=== PATIENT | female | born 1975 | race Caucasian/White ===

== ENCOUNTER 2024-03-27 06:51 | Day surgery (SDC) | payer OTHER ==
[2024-03-27] VITALS (243 sets, daily range): BP systolic 88–164; BP diastolic 45–101
[~2024-03-27] VITALS: Ht 175.3 cm; Wt 59.0 kg
[2024-03-27] MEDS ORDERED: diazePAM 5 MG/TAB PO PRN ×2 (07:30→08:30)
[2024-03-27] MEDS ORDERED: cloNIDine HCL 0.1 MG/TAB PO PRN (07:30)
[2024-03-27] MEDS ORDERED: ALBUTEROL SULFATE 2.5 MG VIAL IN PRN (07:30)
[2024-03-27] MEDS ORDERED: SCOPOLAMINE 1.5 MG DIS TD PRN (07:30)
[2024-03-27] MEDS ORDERED: PANTOPRAZOLE SODIUM Sesquihydr 40 MG/TAB PO PRN (07:30)
[2024-03-27] MEDS ORDERED: FAMOTIDINE 20 MG/TAB PO PRN (07:30)
[2024-03-27] MEDS ORDERED: LACTATED RINGER'S 1,000 ML IV PRN ×3 (07:30→19:00)
[2024-03-27] MEDS ORDERED: CYANOCOBALAMIN 500 MCG/TAB ( B12) PO PRN (07:30)
[2024-03-27] MEDS ORDERED: ASCORBIC ACID 4,000 MG in SODIUM CHLORIDE 0.9% 1,000 ML IV SCH (08:00)
[2024-03-27 08:18] LABS: BASO% 0.4 % (0-3); EOS% 9.8 % (0-8); HEMOGLOBIN 11.9 g/dl (12.0-16.0); LYMPH% 36.7 % (15-41); MEAN CELL VOLUME 93.9 fL CALC (80.0-100.0); MEAN CORPUSCULAR HGB 30.2 pG CALC (26.0-32.0); MEAN CORPUSCULAR HGB CONC 32.2 g/dL CAL (32.0-36.0); MONO% 9.2 % (2-13); NEUT# 3.01 thou/uL (2.00-7.15); NEUT% 43.9 % (42-76); RED BLOOD COUNT 3.94 mill/uL (4.20-5.60); RED CELL DISTRI WIDTH 12.4 % (11.5-15.5)
[2024-03-27 08:34] LABS: BILIRUBIN, TOTAL 0.3 mg/dL (0.02-1.3); CREATININE 0.7 mg/dL (0.5-1.0); POTASSIUM 4.6 mmol/l (3.5-5.1); TOTAL PROTEIN 6.6 g/dL (6.3-8.2)
[2024-03-27] MEDS ORDERED: NALTREXONE HCL 50 MG/TAB VT PRN (10:00)
[2024-03-27] MEDS ORDERED: LIDOCAINE HCL 1% (10MG/ML) 100 MG/10 ML MDV IV PRN (10:00)
[2024-03-27] MEDS ORDERED: MIDAZOLAM HCL 2 MG/2 ML VIAL IV PRN (10:00)
[2024-03-27] MEDS ORDERED: ONDANSETRON HCl 4 MG/2 ML SDV IV PRN ×3 (10:00→19:00)
[2024-03-27] MEDS ORDERED: SUCCINYLCHOLINE CHLORIDE 20 MG/ML 10ML VIAL IV PRN (10:00)
[2024-03-27] MEDS ORDERED: MAGNESIUM SULFATE HEPTAHYDRATE 100 ML IV PRN (10:00)
[2024-03-27] MEDS ORDERED: STERILE WATER FOR IRRIGATION 1,000 ML BTL IR PRN (10:00)
[2024-03-27] MEDS ORDERED: cloNIDine HYDROCHLORIDE 100 MCG/ML 10 ML INJ IV PRN (10:00)
[2024-03-27] MEDS ORDERED: ROCURONIUM BROMIDE 10 MG/ML 5ML VIAL IV PRN (10:00)
[2024-03-27] MEDS ORDERED: cloNIDine HCL 0.1 MG/TAB VT PRN (10:00)
[2024-03-27] MEDS ORDERED: LIDOCAINE HCL 1% (10MG/ML) 100 MG/10 ML MDV VT PRN ×2 (10:00)
[2024-03-27] MEDS ORDERED: THIAMINE HCL 100 MG/ML 2ML VIAL IV PRN (10:00)
[2024-03-27] MEDS ORDERED: OCTREOTIDE ACETATE 100 MCG/VIAL SDV SC PRN (10:00)
[2024-03-27] MEDS ORDERED: PROPOFOL 100 ML IV PRN (10:00)
[2024-03-27] MEDS ORDERED: DiphenhydrAMINE HCL 50 MG/ML SDV IV PRN (10:00)
[2024-03-27] MEDS ORDERED: diazePAM 5 MG/TAB VT PRN (10:00)
[2024-03-27] MEDS ORDERED: PROPOFOL 10 MG/ML 100ML VIAL IV PRN (10:00)
[2024-03-27] MEDS ORDERED: PHENYLEPHRINE HCL 10 MG in DEXTROSE 5% 250 ML IV PRN (10:40)
[2024-03-27] MEDS ORDERED: NALTREXONE50 MG PO (16:18)
[2024-03-27] MEDS ORDERED: KLONOPIN2 MG PO (16:19)
[2024-03-27] MEDS ORDERED: CLONIDINE0.1 MG PO (16:19)
[2024-03-27] MEDS ORDERED: LORazepam 2 MG/ML IV PRN ×2 (19:00)
[2024-03-27] MEDS ORDERED: HALOPERIDOL LACTATE 5 MG/ML SDV IV PRN ×2 (19:00→23:05)
[2024-03-27] MEDS ORDERED: KETOROLAC TROMETHAMINE 30 MG/ML SDV IV PRN (19:00)
[2024-03-27] MEDS ORDERED: ACETAMINOPHEN 1,000 MG/100 ML VIAL IV PRN (19:00)
[2024-03-27] MEDS ORDERED: PROMETHAZINE HCL 25 MG in SODIUM CHLORIDE 0.9% 50 ML IV PRN (19:00)
[2024-03-27] MEDS ORDERED: PROMETHAZINE HCL 12.5 MG in SODIUM CHLORIDE 0.9% 50 ML IV PRN (19:00)
[2024-03-27] MEDS ORDERED: ACETAMINOPHEN 500 MG TAB PO PRN (19:00)
[2024-03-27] MEDS ORDERED: PATIENT' OWN MED CONTROLLED 1 EA DOSE IV PRN (21:00)
[2024-03-27] MEDS ORDERED: cloNIDine HCL 0.1 MG/TAB PO SCH (23:00)
[2024-03-27] MEDS ORDERED: clonazePAM 1 MG/TAB PO PRN (23:00)
[2024-03-28] VITALS (27 sets, daily range): BP systolic 56–183; BP diastolic 38–117
[2024-03-28] MEDS ORDERED: clonazePAM 1 MG/TAB PO PRN ×2 (04:00→08:00)
[2024-03-28] MEDS ORDERED: cloNIDine HCL 0.1 MG/TAB PO PRN (04:00)
[2024-03-28] MEDS ORDERED: NALTREXONE HCL 50 MG/TAB PO SCH (04:00)
[2024-03-28] MEDS ORDERED: diazePAM 10 MG/2 ML VIAL IV SCH (05:30)
[2024-03-28 05:52] LABS: BASO% 0.1 % (0-3); HEMATOCRIT 36.3 % (37.0-47.0); HEMOGLOBIN 11.9 g/dl (12.0-16.0); IMMATURE GRANULOCYTES 0.3 % (0.0-5.0); LYMPH% 7.1 % (15-41); MEAN CELL VOLUME 95.5 fL CALC (80.0-100.0); MEAN CORPUSCULAR HGB 31.3 pG CALC (26.0-32.0); MEAN CORPUSCULAR HGB CONC 32.8 g/dL CAL (32.0-36.0); MONO% 2.7 % (2-13); NEUT# 14.71 thou/uL (2.00-7.15); NEUT% 89.8 % (42-76); RED BLOOD COUNT 3.8 mill/uL (4.20-5.60); RED CELL DISTRI WIDTH 12.4 % (11.5-15.5)
[2024-03-28 05:57] LABS: ALBUMIN 4.2 g/dL (3.2-5.0); CREATININE 0.7 mg/dL (0.5-1.0); MAGNESIUM 2.1 mg/dL (1.6-2.3); POTASSIUM 4.6 mmol/l (3.5-5.1); TOTAL PROTEIN 6.8 g/dL (6.3-8.2)
[2024-03-28] MEDS ORDERED: PANTOPRAZOLE SODIUM Sesquihydr 40 MG/TAB PO SCH (08:00)
[2024-03-28] MEDS ORDERED: ACETAMINOPHEN 325 MG/TAB PO SCH (08:00)
[2024-03-28] MEDS ORDERED: cloNIDine HCL 0.1 MG/TAB PO SCH (08:00)
[2024-03-28] MEDS ORDERED: MIDAZOLAM HCL 2 MG/2 ML VIAL IV SCH (08:30)
[2024-03-28] MEDS ORDERED: MAGNESIUM OXIDE 400 MG/TAB PO PRN (09:00)
[2024-03-28] MEDS ORDERED: ACETAMINOPHEN 500 MG TAB PO PRN (09:00)
[2024-03-28] MEDS ORDERED: Cholecalciferol 2,000 UNIT/TAB PO PRN (09:00)
[2024-03-28] MEDS ORDERED: GLYCOPYRROLATE 0.2 MG/ML IV SCH ×2 (10:00→15:00)
[2024-03-28] MEDS ORDERED: HALOPERIDOL LACTATE 5 MG/ML SDV IV SCH (10:30)
[2024-03-28] MEDS ORDERED: LABETALOL HCL 100 MG/20 ML VIAL IV SCH (11:00)
[2024-03-28] MEDS ORDERED: LABETALOL HCL 100 MG/20 ML VIAL IV PRN (11:00)
[2024-03-28] MEDS ORDERED: GLYCOPYRROLATE 0.2 MG/ML IV PRN (19:45)
[2024-03-28] MEDS ORDERED: SODIUM CHLORIDE 0.9% 1,000 ML IV ONE (22:17)
[2024-03-29] VITALS (12 sets, daily range): BP systolic 122–159; BP diastolic 66–110
[2024-03-29] MEDS ORDERED: NALTREXONE HCL 50 MG/TAB PO SCH (05:25)
[2024-03-29 08:59] LABS: BASO% 0.1 % (0-3); EOS% 0.2 % (0-8); HEMATOCRIT 41.9 % (37.0-47.0); HEMOGLOBIN 13.4 g/dl (12.0-16.0); LYMPH% 5.8 % (15-41); MEAN CELL VOLUME 94.8 fL CALC (80.0-100.0); MEAN CORPUSCULAR HGB 30.3 pG CALC (26.0-32.0); MONO% 4.2 % (2-13); NEUT# 15.25 thou/uL (2.00-7.15); NEUT% 88.7 % (42-76); RED BLOOD COUNT 4.42 mill/uL (4.20-5.60); RED CELL DISTRI WIDTH 12.4 % (11.5-15.5)
[2024-03-29 09:11] LABS: ALBUMIN 3.7 g/dL (3.2-5.0); CREATININE 0.7 mg/dL (0.5-1.0); MAGNESIUM 1.7 mg/dL (1.6-2.3); POTASSIUM 4.1 mmol/l (3.5-5.1); TOTAL PROTEIN 6.4 g/dL (6.3-8.2)
[2024-03-29] MEDS ORDERED: cloNIDine HCL 0.1 MG/TAB PO SCH ×2 (10:45→23:00)
[2024-03-29] MEDS ORDERED: ONDANSETRON HCl 4 MG/2 ML SDV IV PRN ×2 (19:00)
[2024-03-29] MEDS ORDERED: PROMETHAZINE HCL 25 MG in SODIUM CHLORIDE 0.9% 50 ML IV PRN (19:00)
[2024-03-29] MEDS ORDERED: KETOROLAC TROMETHAMINE 30 MG/ML SDV IV PRN (19:00)
[2024-03-29] MEDS ORDERED: LORazepam 2 MG/ML IV PRN ×2 (19:00)
[2024-03-29] MEDS ORDERED: ACETAMINOPHEN 500 MG TAB PO PRN (19:00)
[2024-03-29] MEDS ORDERED: HALOPERIDOL LACTATE 5 MG/ML SDV IV PRN (19:00)
[2024-03-29] MEDS ORDERED: PROMETHAZINE HCL 12.5 MG in SODIUM CHLORIDE 0.9% 50 ML IV PRN (19:00)
[2024-03-29] MEDS ORDERED: LACTATED RINGER'S 1,000 ML IV PRN (19:00)
[2024-03-29] MEDS ORDERED: ACETAMINOPHEN 1,000 MG/100 ML VIAL IV PRN (19:00)
[2024-03-29] MEDS ORDERED: clonazePAM 1 MG/TAB PO SCH (23:00)
[2024-03-30] MEDS ORDERED: NALTREXONE HCL 50 MG/TAB PO SCH (04:00)
[2024-03-30] MEDS ORDERED: cloNIDine HCL 0.1 MG/TAB PO PRN (04:00)
[2024-03-30] MEDS ORDERED: clonazePAM 1 MG/TAB PO PRN (04:00)
[2024-03-30] MEDS ORDERED: ACETAMINOPHEN 325 MG/TAB PO SCH (08:00)
[2024-03-30] MEDS ORDERED: MAGNESIUM OXIDE 400 MG/TAB PO PRN (09:00)
[2024-03-30] MEDS ORDERED: ACETAMINOPHEN 500 MG TAB PO PRN (09:00)
[2024-03-30] MEDS ORDERED: Cholecalciferol 2,000 UNIT/TAB PO PRN (09:00)
== END 2024-03-29 13:33 | disposition home or self-care (01) | DRG 897 ==
LOC: ANR 06:51 → MS2 06:51 → ANR 08:00 → MS2 16:06 → ICU 03-28 08:50 → MS2 03-29 10:09 → ANR 03-29 13:33
PROVIDERS: ATTEND Anesthesiology
DX: F11.20 Opioid dependence, uncomplicated (principal); F05 Delirium due to known physiological condition; Z72.0 Tobacco use
CPT/HCPCS: J1100; J1200; J1596; J1630; J2060; J2354; J2405; J2704; J3360; J3411; J3475; J3490